=== PATIENT | male | born 1975 | race American Indian/Alaskan Native ===

== ENCOUNTER 2018-06-14 07:19 | Outpatient (CLI) | payer OTHER ==
[2018-06-14] MEDS ORDERED: PROVENTIL IH ONE (08:10)
== END 2018-06-14 07:20 | disposition home or self-care (01) ==
LOC: PF 07:19
PROVIDERS: ATTEND Internal Medicine
DX: R06.02 Shortness of breath (principal); R53.83 Other fatigue
CPT/HCPCS: 94060; 94640